=== PATIENT | male | born 1975 | race Caucasian/White ===

== ENCOUNTER 2017-09-05 09:18 | Emergency (ER) | payer OTHER ==
[~2017-09-05] VITALS: Ht 193 cm; Wt 127.0 kg
[~2017-09-05 09:18] MED LIST: CYCL-36 PO; LORT5TAB PO; Z.0.NO CURRENT MEDS
[2017-09-05 09:25] VITALS: BP 146/67; PULSE 66; RESP 18; TEMP 98.7; O2SAT 98
[2017-09-05 09:27] VITALS: O2SAT 100
[2017-09-05 09:30] LABS: AUTOMATED NEUTROPHIL # 6.3 TH/MM3 (1.8-7.7); BASOPHIL % 0.4 % (0.0-2.0); EOSINOPHIL # 0.4 TH/MM3 (0-0.4); EOSINOPHIL % 4.9 % (0.0-4.0); HEMOGLOBIN 13.7 GM/DL (13.0-17.0); LYMPH % 16.1 % (9.0-44.0); LYMPHOCYTE # 1.4 TH/MM3 (1.0-4.8); MEAN CELL VOLUME 85.1 FL (80.0-100.0); MEAN CORPUSCULAR HEMOGLOBIN 27.8 PG (27.0-34.0); MEAN CORPUSCULAR HGB CONC 32.7 % (32.0-36.0); MEAN PLATELET VOLUME 6.8 FL (7.0-11.0); MONO % 7.2 % (0.0-8.0); MONOCYTE # 0.6 TH/MM3 (0-0.9); NEUT % 71.4 % (16.0-70.0); PLATELET COUNT 213 TH/MM3 (150-450); RED BLOOD COUNT 4.94 MIL/MM3 (4.50-5.90); RED CELL DISTRIBUTION WIDTH 12.8 % (11.6-17.2); WHITE BLOOD COUNT 8.7 TH/MM3 (4.0-11.0)
[2017-09-05] MEDS ORDERED: ASPIRIN 325 MG TAB PO ONE (09:30)
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
[2017-09-05 09:36] VITALS: BP 125/69; PULSE 63; RESP 18; O2SAT 97
[2017-09-05 09:47] LABS: CALCIUM 8.4 MG/DL (8.5-10.1)
[2017-09-05 09:48] LABS: BLOOD UREA NITROGEN 15 MG/DL (7-18); GLUCOSE,RANDOM 110 MG/DL (74-106)
[2017-09-05 09:52] LABS: GLOMERULAR FILTRATION RATE 66 ML/MIN (>89)
[2017-09-05 09:57] LABS: CHLORIDE 104 MEQ/L (98-107); SODIUM (NA) 138 MEQ/L (136-145)
[2017-09-05 10:05] LABS: TROPONIN I LESS THAN 0.02 NG/ML (0.02-0.05)
--- NOTE | 2017-09-05 10:18 | RADRPT ---
EXAM DATE/TIME: 09/05/2017 09:49 [facility] COMPARISON: No previous studies available for comparison. INDICATIONS : Mid chest pain today. MEDICAL HISTORY : None. SURGICAL HISTORY : Left knee, ENCOUNTER: Initial ACUITY: 1 day PAIN SCORE: 3/10 LOCATION: chest FINDINGS: A single view of the chest demonstrates the lungs to be symmetrically aerated without evidence of mas s, infiltrate or effusion. The cardiomediastinal contours are unremarkable. Osseous structures are intact. CONCLUSION: No acute disease. Jhonny Denton MD on September 05, 2017 at 10:15 Board Certified Radiologist. This report was verified electronically.
[2017-09-05 11:41] VITALS: BP 121/52
--- NOTE | 2017-09-05 12:56 | EKG ---
Date Performed: 09/05/2017 Time Performed: 09:21:00 PTAGE: 42 years EKG: SINUS BRADYCARDIA PROBABLE INFERIOR MYOCARDIAL INFARCTION ABNORMAL ECG NO PREVIOUS TRACING DOCTOR: Tricia Williamson Interpretating Date/Time 09/05/2017 12:54:37
== END 2017-09-05 11:43 | disposition home or self-care (01) ==
LOC: PHED 09:18
DX: R07.9 Chest pain, unspecified (principal); R94.31 Abnormal electrocardiogram [ECG] [EKG]; Z88.8 Allergy status to other drugs, medicaments and biological substances
CPT/HCPCS: 71045; 80048; 82550; 84484; 85025; 85610; 85730; 93005; 99285